=== PATIENT | female | born 1980 | race Caucasian/White ===

== ENCOUNTER 2017-01-01 08:38 | Emergency (ER) ==
--- NOTE | 2017-01-01 09:32 | Diag Imaging Result Document ---
PROCEDURE NAME: SHOULDER-RIGHT - 01/01/2017 RIGHT SHOULDER, 3 VIEWS: COMPARISON: None. FINDINGS: There is moderate hypertrophic degeneration of the acromioclavicular joint with some spurring and vacuum joint phenomenon. No evidence of fracture or subluxation. The glenohumeral joint surface is smooth. IMPRESSION: Acromioclavicular joint arthropathy. No acute disease.
[2017-01-01] MEDS ORDERED: NORCO-10 PO ONE (09:39)
--- NOTE | 2017-01-01 09:39 | PROVIDER DOCUMENTATION ---
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 Pt states she felt a strain in her shoulder after mopping and woke this morning c significant pain on movement. On arrival, pt is in minimal distress. Review of Systems - Adult - REVIEW OF SYSTEMS - ADULT Constitutional: reports: no symptoms reported. denies: chills, fatique Eyes: reports: no symptoms reported. denies: blurred vision, double vision Ears, Nose, Mouth & Throat: reports: no symptoms reported. denies: ear pain, nose pain, throat pain Cardiovascular: reports: no symptoms reported. denies: chest pain, orthopnea Respiratory: reports: no symptoms reported. denies: cough, shortness of breath Gastrointestinal: reports: no symptoms reported. denies: abdominal pain, nausea Genitourinary: reports: no symptoms reported. denies: dysuria, flank pain, hematuria Musculoskeletal: reports: joint pain, joint swelling Integumentary: reports: no symptoms reported. denies: itching, rash Neurological: reports: no symptoms reported. denies: numbness, paresthesia Psychiatric: reports: no symptoms reported. denies: anxiety, emotional problems Endocrine: reports: no symptoms reported. denies: cold intolerance, heat intolerance Hematologic/Lymphatic: reports: no symptoms reported. denies: blood clots, low blood count Allergic/Immunologic: reports: no symptoms reported. denies: allergic reactions , food allergy All Other Systems: Reviewed and Negative Past History - Adult - PAST MEDICAL HISTORY-ADULT Review of Records: reports: Old Records Reviewed, Nursing Assessment Review, Medications Reviewed, Social history reviewed & non-contributory. Major Childhood Illnesses: reports: denies history Cardiovascular: reports: denies history Respiratory: reports: denies history Gastrointestinal: reports: denies history Obstetrical/Gynecological: reports: denies history Genitourinary: reports: denies history Musculoskeletal: reports: denies history Neurological: reports: denies history Endocrine/Immune: reports: denies history Other Conditions: reports: denies history - IMMUNIZATION STATUS Childhood Immunizations: See Nurse Assessment Flu Vaccine: See Nurse Assessment - FAMILY HISTORY Family History: reviewed, not pertinent - SOCIAL HISTORY Smoking: denies Substance Use: none/never Alcohol Use Frequency: never Living Situation: family Physical Exam-Injury Related - Physical Exam-Injury Related Initial Vital Signs Reviewed: Yes General Appearance: appears well, alert, no apparent distress Eyes: PERRL/EOMI, pink conjunctivae, fundi clear, no AV nicking Head, Ears, Nose, Mouth & Throat: normocephalic/atraumatic, moist mucous membranes, normal ENT inspection Neck: non-tender, full range of motion, supple Respiratory: chest non-tender, lungs clear, normal breath sounds Cardiovascular: normal peripheral pulses, regular rate, rhythm, no edema Abdominal Exam: normal bowel sounds, non tender, soft Lymphatic: no adenopathy Back Exam: normal inspection, no CVA tenderness, no vertebral tenderness Extremity: tenderness (R shoulder tenderness to palpation, pain on empty cup test, positive cross arm test) Integumentary: normal color, warm/dry, blanching Neurologic: grossly normal, no motor/sensory deficits Psych/Mental Status: normal mood/affect, normal thought content, normal thought process, oriented x 3 - Glascow Coma Score Best Eye Response (Sun): (4) open spontaneously Best Verbal Response (Ray): (5) oriented Best Motor Response (Sun): (6) obeys commands Progress - PLAN OF CARE/RESULTS Progress/Plan/Lab Results: Orders Category Date Time Status Arm Sling DIRECTED Care 01/01/17 09:36 Active SHOULDER-RIGHT [RAD] Stat Exams 01/01/17 08:48 Draft Vital Signs - 24 hr 01/01/17 08:45 Temperature 98.1 F Pulse Rate 71 Respiratory 18 Rate Blood Pressure 119/71 O2 Sat by Pulse 99 Oximetry Procedures - SPLINTING Right Upper Extremity Other Location: R arm/shoulder Pre-Procedure Neurovascular Exam: Intact Pre-Fabricated Splint: Shoulder Immobilizer Applied By: windows server engineer Assisted By: ED Nurse Procedure Comment: well tolerated Departure - Departure Time of Disposition Order: 09:37 DIAGNOSIS: Rotator cuff injury Qualifiers: Encounter type: initial encounter Laterality: right Qualified Code(s): S46.001A - Unspecified injury of muscle(s) and tendon(s) of the rotator cuff of right shoulder, initial encounter Disposition: HOME 01 Certified Medical Emergency: Emergent Condition: Stable Additional Instructions: ED Follow Up Instructions: You have been treated by a care provider in the Emergency Department. These instructions are being provided to you so you can have an understanding of how to care for yourself upon discharge. Upon discharge from the Emergency Department, you are responsible for making arrangements for follow-up care by a physician of your choice. Take all prescribed medications as directed. Return to the Emergency Department immediately for any new or worsening symptoms. You may call the Physician Referral phone number at [phone] to obtain a list of Physicians who are taking new patients. Prescriptions: Ibuprofen [Motrin] 800 mg PO Q8H PRN PRN #20 tablet PRN Reason: inflammation Omeprazole [Prilosec] 20 mg PO DAILY@0700 #20 capsule Tramadol [Ultram] 50 mg PO Q8HR #14 tablet Referrals: Ronnell Persaud MD [Primary Care Provider] - Mykel Iglesias MD [STAFF PHYSICIAN] - Call for Appoint. 1-2days Forms: Return to School/Parent Work Instructions: Rotator Cuff Injury Attestation - Physician/ NAEEM Attestation Patient care was provided by Advanced Practice Provider:: Yes Advanced Practice Provider:: Glen Grossman Advanced Practice Provider documentation review:: The Mid-level provider documentation, treatment plan and medical decision making was reviewed by the physician who agrees with all treatment and medical decision making by the MLP.
[2017-01-01 10:01] VITALS: BP 116/67
== END 2017-01-01 09:59 | disposition home or self-care (01) ==
LOC: ED 08:38 → SUPCPDRO 08:38 → ED 09:59
DX: S46.001A Unspecified injury of muscle(s) and tendon(s) of the rotator cuff of right shoulder, initial encounter (principal); M25.511 Pain in right shoulder; X50.9XXA Other and unspecified overexertion or strenuous movements or postures, initial encounter; M25.411 Effusion, right shoulder; Z79.899 Other long term (current) drug therapy